=== PATIENT | male | born 1975 | race Two or more races ===

== ENCOUNTER → 2021-11-23 | Outpatient (CLI) | payer OTHER | LOC: M PLAIMG 14:00 | DX: M25.532 Pain in left wrist (principal) ==

== ENCOUNTER → 2022-02-28 | Outpatient (CLI) | payer OTHER ==
[~2022-02-28] MED LIST: ISOVUE-300 61% 50ML VIAL As Ordered ONE; LIDOCAINE 1% MDV 20ML VIAL As Ordered ONE; PROHANCE 279.3MG/ML 5ML VIAL As Ordered ONE
== END ==
LOC: M RADPRO 07:10
PROVIDERS: ATTEND Orthopaedic Surgery Hand Surgery
DX: S63.392A Traumatic rupture of other ligament of left wrist, initial encounter (principal); M25.532 Pain in left wrist
CPT/HCPCS: 25246; 73223; 77002; A9576; Q9967

== ENCOUNTER → 2022-03-21 | Outpatient (CLI) | payer OTHER | LOC: M RAD 16:13 | PROVIDERS: ATTEND Orthopaedic Surgery Hand Surgery | DX: M79.642 Pain in left hand (principal) ==